=== PATIENT | male | born 1995 | race Caucasian/White ===

== ENCOUNTER 2016-07-20 17:16 | Emergency (ER) | payer SELFPAY ==
[~2016-07-20] VITALS: Ht 182.9 cm; Wt 98.0 kg
[2016-07-20 17:18] VITALS: BP 158/92; PULSE 66; RESP 17; TEMP 98.2; O2SAT 97
[2016-07-20 20:18] VITALS: BP 155/88; PULSE 76; RESP 16; O2SAT 100
--- NOTE | 2016-07-20 20:35 | PD ---
HPI Chief Complaint: Chest Pain Time Seen by Provider: 20:35 Travel History International Travel<30 days: No Contact w/Intl Traveler<30days: No Traveled to known affect area: No History of Present Illness HPI 21-year-old male with history of asthma presents to the emergency department for evaluation of a left-sided chest pain, sharp, radiating to his back. This is worse with deep inspiration. Patient states he has had a cough the last day or 2. It is nonproductive. Recently moved here from [place].. Patient drove here. Denies any recent fever or chills. No nausea or vomiting. No abdominal pain. She has no history of DVT or PE. Denies illicit drug use. Patient has no other symptoms to report. [facility] Past Medical History Asthma: Yes Past Surgical History Surgical History: No Previous Surgery Social History Alcohol Use: No Tobacco Use: No Substance Use: No Allergies-Medications (Allergen,Severity, Reaction): Coded Allergies: No Known Allergies (Unverified , 07/20/16) Reported Meds & Prescriptions Reported Meds & Active Scripts Active Naproxen 500 Mg Tab 500 Mg PO BID PRN Review of Systems Except as stated in HPI: all other systems reviewed are Neg Physical Exam Narrative GENERAL: Well-nourished male patient, ambulatory and in no acute distress SKIN: Warm and dry. HEAD: Atraumatic. Normocephalic. EYES: Pupils equal and round. No scleral icterus. No injection or drainage. ENT: No nasal bleeding or discharge. Mucous membranes pink and moist. NECK: Trachea midline. No JVD. CARDIOVASCULAR: Regular rate and rhythm. No murmur appreciated. RESPIRATORY: No accessory muscle use. Clear to auscultation. Breath sounds equal bilaterally. GASTROINTESTINAL: Abdomen soft, non-tender, nondistended. Hepatic and splenic margins not palpable. MUSCULOSKELETAL: No obvious deformities. No clubbing. No cyanosis. No edema. NEUROLOGICAL: Awake and alert. No obvious cranial nerve deficits. Motor grossly within normal limits. Normal speech. PSYCHIATRIC: Appropriate mood and affect; insight and judgment normal. Data Data Last Documented VS Vital Signs Date Time Temp Pulse Resp B/P Pulse Ox O2 Delivery O2 Flow Rate FiO2 07/20/16 20:18 76 16 155/88 100 Room Air 07/20/16 17:18 98.2 Orders Electrocardiogram (07/20/16 ) Group A Rapid Strep Screen (07/20/16 20:53) Chest, Single Ap (07/20/16 ) Iv Access Insert/Monitor (07/20/16 20:53) Complete Blood Count With Diff (07/20/16 20:53) Basic Metabolic Panel (Bmp) (07/20/16 20:53) D-Dimer (07/20/16 20:53) Coag Profile (07/20/16 20:53) Ketorolac Inj (Toradol Inj) (07/20/16 21:15) Strep Culture (Group A) (07/20/16 21:00) Ct Pulmonary Angiogram (07/20/16 ) Iohexol 350 Inj (Omnipaque 350 Inj) (07/20/16 22:27) Sodium Chlor 0.9% 1000 Ml Inj (Ns 1000 M (07/20/16 23:00) Labs Laboratory Tests Test 07/20/16 21:00 White Blood Count 17.0 TH/MM3 Red Blood Count 5.40 MIL/MM3 Hemoglobin 15.7 GM/DL Hematocrit 44.4 % Mean Corpuscular Volume 82.2 FL Mean Corpuscular Hemoglobin 29.0 PG Mean Corpuscular Hemoglobin 35.3 % Concent Red Cell Distribution Width 13.1 % Platelet Count 208 TH/MM3 Mean Platelet Volume 8.8 FL Neutrophils (%) (Auto) 73.9 % Lymphocytes (%) (Auto) 17.2 % Monocytes (%) (Auto) 6.5 % Eosinophils (%) (Auto) 1.7 % Basophils (%) (Auto) 0.7 % Neutrophils # (Auto) 12.6 TH/MM3 Lymphocytes # (Auto) 2.9 TH/MM3 Monocytes # (Auto) 1.1 TH/MM3 Eosinophils # (Auto) 0.3 TH/MM3 Basophils # (Auto) 0.1 TH/MM3 CBC Comment DIFF FINAL Differential Comment Prothrombin Time 10.7 SEC Prothromb Time International 1.0 RATIO Ratio Activated Partial 26.6 SEC Thromboplast Time D-Dimer Quantitative (PE/DVT) 0.83 MG/L FEU Sodium Level 139 MEQ/L Potassium Level 3.5 MEQ/L Chloride Level 101 MEQ/L Carbon Dioxide Level 29.9 MEQ/L Anion Gap 8 MEQ/L Blood Urea Nitrogen 10 MG/DL Creatinine 1.06 MG/DL Estimat Glomerular Filtration 87 ML/MIN Rate Random Glucose 65 MG/DL Calcium Level 8.7 MG/DL [facility] Medical Decision Making Medical Screen Exam Complete: Yes Emergency Medical Condition: Yes Medical Record Reviewed: Yes Differential Diagnosis Costochondritis versus pleurisy versus pneumonia versus influenza versus PE Narrative Course 21-year-old male presents to the emergency department for evaluation of a left- sided chest pain worse with deep inspiration and a cough. Patient appears without distress. CBC leukocytosis of 17. BMP is without acute concern. D- dimer is elevated 0.83. Chest x-rays without acute cardiopulmonary disease. CT angiogram shows no evidence of pulmonary. No acute pulmonary infiltrates. Patient was given IV fluids and IV Toradol here in emergency department upon reassessment, patient eats he is feeling much better. He would like to go home. I have also him on care and he agrees to return immediately with any acute worsening of symptoms Diagnosis Primary Impression: Pleuritic chest pain Additional Impression: Upper respiratory infection Qualified Code: J06.9 - Upper respiratory tract infection, unspecified type Referrals: Primary Care Physician Patient Instructions: General Instructions, Pleurisy (ED) Additional Instructions: It is important that you continue to take deep breaths despite pain with inspiration Follow-up with a primary care provider Return immediately with any acute worsening symptoms Med/Other Pt SpecificInfo: Prescription(s) given Scripts Azithromycin (Zithromax Z-Cesar)250 Mg [id number] Mg PO DIRECTED #1 DSPK Ref 0 500 MG (2 tabs) day 1, then 1 tab days 2-5. Prov:Luda Baig 07/20/16 Naproxen 500 Mg [id number] Mg PO BID PRN (PAIN SCALE 1 TO 10) #30 TAB Ref 0 Prov:Luda Baig 07/20/16 Disposition: 01 DISCHARGE HOME Condition: Stable Luda Baig Jul 20, 2016 20:35
[2016-07-20] MEDS ORDERED: KETOROLAC TROMETHAMINE 60 MG/2 ML (IM) VIAL IM ONE (21:15)
--- NOTE | 2016-07-20 21:20 | RADRPT ---
EXAM DATE/TIME: 07/20/2016 20:56 [facility] COMPARISON: No previous studies available for comparison. INDICATIONS : Chest pain, cough MEDICAL HISTORY : None. SURGICAL HISTORY : None. ENCOUNTER: Initial ACUITY: 1 day PAIN SCORE: 6/10 LOCATION: Bilateral chest FINDINGS: A single view of the chest demonstrates the lungs to be symmetrically aerated without evidence of mas s, infiltrate or effusion. The cardiomediastinal contours are unremarkable. Osseous structures are intact. CONCLUSION: No acute intrathoracic disease. Fransico Thomas MD on July 20, 2016 at 21:18 Board Certified Radiologist. This report was verified electronically.
[2016-07-20 21:32] LABS: AUTOMATED NEUTROPHIL # 12.6 TH/MM3 (1.8-7.7); BASOPHIL # 0.1 TH/MM3 (0-0.2); BASOPHIL % 0.7 % (0.0-2.0); EOSINOPHIL # 0.3 TH/MM3 (0-0.4); EOSINOPHIL % 1.7 % (0.0-4.0); HEMATOCRIT 44.4 % (39.0-51.0); HEMO FLAGS DIFF FINAL; LYMPH % 17.2 % (9.0-44.0); LYMPHOCYTE # 2.9 TH/MM3 (1.0-4.8); MEAN CELL VOLUME 82.2 FL (80.0-100.0); MEAN CORPUSCULAR HGB CONC 35.3 % (32.0-36.0); MONO % 6.5 % (0.0-8.0); NEUT % 73.9 % (16.0-70.0); PLATELET COUNT 208 TH/MM3 (150-450); RED CELL DISTRIBUTION WIDTH 13.1 % (11.6-17.2)
[2016-07-20 21:47] LABS: APTT (PATIENT) 26.6 SEC (24.3-30.1); PROTHROMBIN TIME - PATIENT 10.7 SEC (9.8-11.6)
[2016-07-20 22:00] LABS: BICARBONATE 29.9 MEQ/L (21.0-32.0); POTASSIUM 3.5 MEQ/L (3.5-5.1)
[2016-07-20] MEDS ORDERED: IOHEXOL 350 MG/ML 10 ML VIAL (for RAD DIAG) IV ONE (22:27)
--- NOTE | 2016-07-20 22:41 | RADRPT ---
EXAM DATE/TIME: 07/20/2016 22:27 [facility] COMPARISON: No previous studies available for comparison. INDICATIONS : Left sided chest pain. IV CONTRAST: 75 cc Omnipaque 350 (iohexol) IV RADIATION DOSE: 23.22 CTDIvol (mGy) MEDICAL HISTORY : Asthma. SURGICAL HISTORY : None. ENCOUNTER: Initial ACUITY: 1 day PAIN SCALE: 5/10 LOCATION: Left chest TECHNIQUE: Volumetric scanning of the chest was performed using a pulmonary embolism protocol MIP images were re constructed. Using automated exposure control and adjustment of the mA and/or kV according to patien t size, radiation dose was kept as low as reasonably achievable to obtain optimal diagnostic quality images. FINDINGS: PULMONARY ARTERIES: No filling defects are seen in the pulmonary arteries through the segmental level. LUNGS: There is no consolidation or pneumothorax . No concerning pulmonary nodule is visualized. PLEURAE: There is no pleural thickening or pleural effusion. MEDIASTINUM: There is good visualization of the great vessels of the middle mediastinum. No evidence of mediastin al or hilar adenopathy/mass. MUSCULOSKELETAL: Within normal limits for patient age. MISCELLANEOUS: The visualized upper abdominal organs demonstrate no acute abnormality. CONCLUSION: 1. No evidence of pulmonary embolism. 2. No acute pulmonary infiltrates. Fransico Thomas MD on July 20, 2016 at 22:39 Board Certified Radiologist. This report was verified electronically.
[2016-07-20] MEDS ORDERED: NAPR500T PO (22:52)
[2016-07-20] MEDS ORDERED: SODIUM CHLOR 0.9% 1000 ML INJ 1,000 ML IV ONE (23:00)
[2016-07-20] MEDS ORDERED: ZITHTAB PO (23:02)
--- NOTE | 2016-07-21 14:46 | EKG ---
Date Performed: 07/20/2016 Time Performed: 17:37:29 PTAGE: 21 years EKG: Sinus rhythm NORMAL ECG NO PREVIOUS TRACING DOCTOR: Elliot Harmon Interpretating Date/Time 07/21/2016 14:40:23
== END 2016-07-21 00:12 | disposition home or self-care (01) ==
LOC: NEPE 17:16
DX: R07.81 Pleurodynia (principal); J06.9 Acute upper respiratory infection, unspecified; R05 Cough; Z87.09 Personal history of other diseases of the respiratory system
CPT/HCPCS: 71010; 71275; 80048; 85025; 85379; 85610; 85730; 87081; 87880; 93005; 96372; 99285; J1885; J7030; Q9967